=== PATIENT | male | born 1995 | race Caucasian/White ===

== ENCOUNTER 2016-08-09 23:46 | Emergency (ER) | payer SELFPAY ==
[2016-08-09 23:56] VITALS: BP 143/66; TEMP 98.2; BMI 33.0
--- NOTE | 2016-08-10 00:16 | EDPRACDOC ---
- General Information Chief Complaint: Earache Stated Complaint: VERTIGO Time Seen by Provider: 08/09/16 23:55 Mode of Arrival: Car Home Medications: Home Medications Aspirin (Enteric Coated) [Ecotrin] 162 mg PO .ONCE 07/02/16 Ketoprofen 75 mg PO TID #20 capsule 07/02/16 Meclizine HCl [Antivert] 25 mg PO TID PRN #15 tab 08/10/16 Ondansetron HCl [Zofran] 4 mg PO Q6H PRN #12 tab 08/10/16 Allergies/Adverse Reactions: Allergies Allergy/AdvReac Type Severity Reaction Status Date / Time acetaminophen [From Tylenol] Allergy Anaphylaxis Verified 07/02/16 15:21 * - History of Present Illness Onset: few day HPI: BILATERAL EAR PAIN/ACHING FOR A FEW DAYS. TODAY ABOUT 1700 DEVELOPED VERTIGO AND HEADACHE AND PHOTOPHOBIA, WITH NAUSEA. URI SYMPTOMS FOR A COUPLE OF DAYS. POSITION MAKES SYMPTOMS WORSE (TURNING HEAD LEFT AND RIGHT). ED Past Medical History - History Reviewed Yes Nurses notes reviewed and agree except as marked - Patient Medical History Respiratory History: Reports: Asthma - Social Medical History Smoking Status: Never smoker EDM Review of Systems - Review of Systems ROS Negative Except as Marked: Yes All systems reviewed and were negative except as marked Respiratory: No Symptoms Reported Cardiovascular: No Symptoms Reported Gastrointestinal: Nausea Neurological: Headache Musculoskeletal: No Symptoms Reported - Physical Exam Constitutional: Alert (Awake), No apparent distress Oriented to: Time, Person, Place Last recorded Vital Signs: Last Vital Signs Temp 98.2 F 08/09/16 23:51 Pulse 84 08/09/16 23:51 Resp 18 08/09/16 23:51 BP 143/66 08/09/16 23:51 Pulse Ox 95 08/09/16 23:51 Oxygen Pulse Oxygen Saturation 95 O2 Device Room Air Oxygen Flow Rate Fraction of Inspired Oxygen ( FIO2) - HEENT Head: Normal ( normocephalic) Eye Exam: Normal (PERRL, EOMI, Sclera white) Oropharynx: Normal (Pharynx:Moist without exudate,Gums-no swelling) Tympanic Membrane: Normal ENT EAC: Normal TMJ: Normal Nose: No Symptoms Reported (septum midline) Neck: Normal (FROM, trachea at midline) - Respiratory/Cardiovascular Respiratory: Normal - CTA (BBS clear to auscultation without adventitious sounds ) Cardiovascular: Normal (RRR without murmur, gallop or rub) - GI Auscultation: Normal (NABS) Palpation: Normal (Soft,No rebound or guarding, non distended) Tenderness: Non tender Liao's Sign: Negative - Musculoskeletal Back: Normal (Non-Tender) Extremities: Normal (Normal tone, Pulses 2+ No cyanosis or edema, FROM) - Integumentary Skin: Normal, Warm, Dry Lymphatics: Normal (no adenopathy) - Neurologic Memory Impaired: Normal Motor Function: Normal (Normal tone, Pulses 2+ No cyanosis or edema, FROM) Cranial Nerve: Normal (CN II-X11 intact sensation, strength 5/5) Cerebellar: Normal Mood Description: Normal Perception: Normal Decision Time to Discharge: 00:19 - Departure Yes I personally saw and evaluated the patient. Disposition: Home Condition: Stable Final Diagnosis: Benign positional vertigo Qualifiers: Laterality: unspecified laterality Qualified Code(s): H81.10 - Benign paroxysmal vertigo, unspecified ear Instructions: Vertigo (ED) Education/Counseling Given To: Patient Education/Counseling Given Regarding: Diagnosis Referrals: None,No Provider [Primary Care Provider] - One Week Prescriptions: No Action Aspirin (Enteric Coated) [Ecotrin] 162 mg PO .ONCE Ketoprofen 75 mg PO TID #20 capsule Forms: Excuse Note
[2016-08-10] MEDS ORDERED: MECLIZINE 25 MG TAB PO ONE (00:17)
[2016-08-10] MEDS ORDERED: ONDANSETRON HCL 4 MG ODT TAB PO ONE (00:17)
[2016-08-10 00:39] VITALS: PULSE 82
== END 2016-08-10 00:37 | disposition home or self-care (01) ==
LOC: ED 23:46
DX: H81.10 Benign paroxysmal vertigo, unspecified ear (principal)
CPT/HCPCS: 99283; J3490